=== PATIENT | female | born 1990 | race Caucasian/White ===

== ENCOUNTER 2017-10-16 08:57 | Day surgery (SDC) | payer OTHER ==
[~2017-10-16] VITALS: Ht 157.5 cm; Wt 77.6 kg
[~2017-10-16 08:57] MED LIST: ADDERALL XR 2020 MG PO; ADVIL PM1 TABLET PO; IMITREX100 MG PO; NOHOMEMEDS; PROMETHAZINE HC25 M1 PO; PROTONIX40 MG PO; TOPAMAX25 MG PO; ZESTRIL40 MG PO
[2017-10-16 09:58] VITALS: BP 132/79
[2017-10-16 10:35] LABS: ALBUMIN 4.5 g/dL (3.2-4.8)
[2017-10-16 10:38] LABS: TOTAL PROTEIN 7.7 g/dL (6.4-8.3)
[2017-10-16 10:40] LABS: TOTAL BILIRUBIN 1.2 mg/dL (0.0-1.0)
[2017-10-16 10:41] LABS: ALKALINE PHOSPHATASE 66 IU/L (3-129)
[2017-10-16 10:43] LABS: AST (GOT) 19 IU/L (2-34)
[2017-10-16 10:44] LABS: ALT (GPT) 26 IU/L (3-49); DIRECT BILIRUBIN 0.4 mg/dL (0.0-0.3)
[2017-10-16] MEDS ORDERED: NORCO 5/3251 TABLET PO (12:17)
[2017-10-16 14:38] VITALS: BP 113/59
[2017-10-16 15:30] VITALS: BP 98/54
== END 2017-10-16 16:10 | disposition home or self-care (01) ==
LOC: SDC 08:57
PROVIDERS: Surgery
PROC: 0FT44ZZ Resection of Gallbladder, Percutaneous Endoscopic Approach (ICD-10-PCS; principal; 2017-10-16)
DX: K80.10 Calculus of gallbladder with chronic cholecystitis without obstruction (principal); I10 Essential (primary) hypertension
CPT/HCPCS: 80076; 81025; 87641; 88304; 93005; J0131; J1170; J1885; J2250; J3010; S0074

== ENCOUNTER 2017-10-24 14:17 | Emergency (ER) | payer OTHER ==
[~2017-10-24] VITALS: Ht 167.6 cm; Wt 78.6 kg
[~2017-10-24 14:17] MED LIST changes: +NORCO 5/3251 TABLET PO
[2017-10-24 15:06] LABS: HEMATOCRIT 38.8 % (36.0-46.0); HEMOGLOBIN 13.1 G/DL (11.9-15.5); MCH 30.5 PG (29.0-34.0); MCHC 33.8 G/DL (30.0-36.0); MCV 90.2 FL (83-99); PLATELET COUNT 282 K/uL (156-360); RBC DIS.WIDTH-CV 13.1 % (11.8-14.6); WHITE BLOOD COUNT 7.4 K/uL (4.1-10.2)
[2017-10-24 15:21] LABS: ALBUMIN 4.6 g/dL (3.2-4.8); CHLORIDE 106 mEq/L (99-109); POTASSIUM 3.8 mEq/L (3.7-5.4); SODIUM 140 mEq/L (136-147)
[2017-10-24 15:23] LABS: GLUCOSE 111 mg/dL (70-99); TOTAL PROTEIN 7.9 g/dL (6.4-8.3)
[2017-10-24 15:25] LABS: TOTAL BILIRUBIN 0.7 mg/dL (0.0-1.0)
[2017-10-24 15:27] LABS: ALKALINE PHOSPHATASE 61 IU/L (3-129); CREATININE 0.7 mg/dL (0.6-1.3); GFR ESTIMATE (CALCULATED) > 59 mL/min/
[2017-10-24 15:30] LABS: ALT (GPT) 23 IU/L (3-49); LIPASE 30 U/L (1.0-51.0)
[2017-10-24 15:54] LABS: UREA NITROGEN (BUN) 15 mg/dL (9-23)
[2017-10-24 15:55] LABS: AST (GOT) 18 IU/L (2-34)
[2017-10-24 16:01] LABS: QUANTITATIVE HCG < 4.0 MIU/ML
[2017-10-24] MEDS ORDERED: PROTONIX40 MG PO (17:33)
[2017-10-24] MEDS ORDERED: PERCOCET 5/31 TABLET PO (18:03)
[2017-10-24 18:25] VITALS: BP 116/84
== END 2017-10-24 18:25 | disposition home or self-care (01) ==
LOC: EME 14:17
PROVIDERS: Nurse Practitioner Family
DX: R10.33 Periumbilical pain (principal); Z90.49 Acquired absence of other specified parts of digestive tract; Z87.442 Personal history of urinary calculi
CPT/HCPCS: 74177; 80053; 83690; 84702; 85027; 99281; 99285; C9113; J2405; J3010; J7030